=== PATIENT | male | born 1975 | race Caucasian/White ===

== ENCOUNTER 2017-04-10 17:49 | Inpatient (IN) ==
[2017-04-10] MEDS ORDERED: methylPREDNISolone SOD SUC 125 MG/2 ML VIAL IV STA (18:08)
[2017-04-10] MEDS ORDERED: VANCOMYCIN INJ 1,000 MG in SODIUM CHLORIDE 0.9% 250 ML IV STA (18:08)
[2017-04-10] MEDS ORDERED: KETOROLAC 30 MG/1 ML VIAL IV STA (18:08)
[2017-04-10] MEDS ORDERED: methylPREDNISolone SOD SUC 125 MG/2 ML VIAL ONE (18:35)
[2017-04-10] MEDS ORDERED: KETOROLAC 30 MG/1 ML VIAL ONE (18:35)
[2017-04-10] MEDS ORDERED: VANCOMYCIN 1,000 MG VIAL ONE (18:35)
[2017-04-10 18:51] LABS: Basophils # 0.1 10*3/uL (0.0-0.2); Basophils % 0.4 % (0.0-0.8); Eosinophils # 0.6 10*3/uL (0.0-0.87); Hematocrit 45.1 VOL% (42.0-52.0); Hemoglobin 15.1 GM/DL (14.0-18.0); Immature Granulocytes % 1.2 %; Immature Granulocytes Absolute 0.36 #; Lymphocytes % 3.4 % (21.2-54.2); Mean Corpuscular HGB Conc 33.5 GM/DL (32-36); Mean Corpuscular Hemoglobin 29 PG (27-34); Mean Corpuscular Volume 86.6 FL (87-102); Monocytes # 1.4 10*3/uL (0.11-0.8); Monocytes % 4.8 % (1.7-12.7); Neutrophils # 25.8 10*3/uL (1.4-7.4); Neutrophils % 88.2 % (38.7-73.9); Platelet Count 311 T/CUMM (130-400); Red Blood Count 5.21 MC/CUMM (3.8-5.5); Red Cell Distribution Width 12.3 % (9.3-17.3); White Blood Count 29.2 T/CUMM (4-12)
[2017-04-10 19:03] LABS: Lactic Acid 2.9 MMOL/L (0.4-2.0)
[2017-04-10 19:06] LABS: INR 1.1; PT Patient Result 11.3 SECS
[2017-04-10 19:13] LABS: Alanine Aminotransferase 28 U/L (16-61); Albumin 3.2 G/DL (3.4-5.0); Alkaline Phosphatase 129 U/L (45-117); Aspartate Amino Transferase 17 U/L (0-37); Blood Urea Nitrogen 14 MG/DL (7-18); Calcium 9.1 MG/DL (8.5-10.1); Glucose 131 MG/DL (74-106); Osmolality,Calculated 275.8 MOS/KG (273-304); Potassium 3.1 MMOL/L (3.5-5.1); Sodium 137 MMOL/L (136-145); Total Protein 8.5 G/DL (6.4-8.3); Troponin I Only < 0.015 NG/ML (0.00-0.045)
[2017-04-10] MEDS ORDERED: SODIUM CHLORIDE 0.9% 1,000 ML IV STA (19:18)
[2017-04-10] MEDS ORDERED: ONDANSETRON 4 MG/2 ML VIAL IV STA (19:25)
[2017-04-10] MEDS ORDERED: HYDROmorphone 2 MG/1 ML VIAL IV STA (19:25)
[2017-04-10 19:55] LABS: Sedimentation Rate-Westergren 35 MM/HR (0-15)
[2017-04-10] MEDS ORDERED: SODIUM CHLORIDE 0.9% 2,200 ML IV ONE (20:02)
[2017-04-10] MEDS ORDERED: ONDANSETRON 4 MG/2 ML VIAL ONE (20:07)
[2017-04-10] MEDS ORDERED: HYDROmorphone 2 MG/1 ML VIAL ONE (20:08)
[2017-04-10 20:46] LABS: Band Neutrophils 2 % (0-10); Eosinophils 5 % (0-10); Lymphocytes 7 % (20-55); Segmented Neutrophils 80 % (50-85); Total Cells Counted 100
[2017-04-10 20:47] LABS: Platelet Estimate Normal
[2017-04-10] MEDS ORDERED: INFLUENZA VIRUS VACCINE 0.5 ML SYRINGE IM ONE (22:00)
[2017-04-10] MEDS ORDERED: POTASSIUM CHLORIDE 20 MEQ TABLET PO ONE (22:30)
[2017-04-11 01:25] LABS: Apearance,Urine Slightly Hazy (Clear); Bacteria,Urine Occasional /HPF (Few); Bilirubin,Urine Negative (Negative); Blood, Urine Negative (Negative); Glucose,Urine (UA) 50 mg/dL (Negative); Hyaline Casts,Urine 2 /LPF (0-3); Ketones,Urine Negative (Negative); Mucus,Urine Occasional /LPF (Occasional); Nitrite,Urine Negative (Negative); Protein,Urine 30 MG/DL; RBC,Urine 2 /HPF (0-4); Squamous Epithelial Cell,Urine Occasional /HPF (0-10); Urine Color Amber (Yellow); Urine Specific Gravity 1.027 (1.001-1.035); WBC,Urine 4 /HPF (0-6)
[2017-04-11] MEDS: MORPHINE 10 MG/1 ML VIAL IV PRN ×4 (01:50→20:05)
[2017-04-11 02:25] LABS: Barbiturates Screen,Urine Negative (Negative); Benzodiazepines Screen,Urine Negative (Negative); Cannabinoid Screen,Urine Positive (Negative); Opiate Screen,Urine Positive (Negative); Phencyclidine Screen,Urine Negative (Negative)
[2017-04-11 04:14] LABS: Basophils # 0.1 10*3/uL (0.0-0.2); Basophils % 0.3 % (0.0-0.8); Eosinophils % 0.1 % (0.00-10.9); Hematocrit 41.6 VOL% (42.0-52.0); Hemoglobin 13.8 GM/DL (14.0-18.0); Immature Granulocytes Absolute 1.89 #; Lymphocytes # 0.8 10*3/uL (1.4-4.0); Lymphocytes % 2.1 % (21.2-54.2); Mean Corpuscular HGB Conc 33.2 GM/DL (32-36); Mean Corpuscular Hemoglobin 29 PG (27-34); Mean Corpuscular Volume 87.4 FL (87-102); Mean Platelet Volume 11.8 FL (9.6-12.0); Monocytes # 1.2 10*3/uL (0.11-0.8); Monocytes % 3.2 % (1.7-12.7); Neutrophils # 33.8 10*3/uL (1.4-7.4); Neutrophils % 89.3 % (38.7-73.9); Platelet Count 282 T/CUMM (130-400); Red Blood Count 4.76 MC/CUMM (3.8-5.5); Red Cell Distribution Width 12.5 % (9.3-17.3); White Blood Count 37.8 T/CUMM (4-12)
[2017-04-11 04:34] LABS: Osmolality,Calculated 276.4 MOS/KG (273-304); Potassium 3.9 MMOL/L (3.5-5.1)
[2017-04-11] MEDS: VANCOMYCIN INJ 1,000 MG in SODIUM CHLORIDE 0.9% 250 ML IV SCH ×2 (06:04→17:13)
[2017-04-11 07:08] LABS: Band Neutrophils 15 % (0-10); Hypochromasia 1+; Lymphocytes 2 % (20-55); Metamyelocytes 4 %; Segmented Neutrophils 78 % (50-85); Total Cells Counted 100
[2017-04-11 07:09] LABS: Platelet Estimate Normal
[2017-04-11] MEDS ORDERED: KETAMINE 500 MG/10 ML VIAL ONE (15:20)
[2017-04-11] MEDS ORDERED: HYDROmorphone 2 MG/1 ML VIAL ONE (15:21)
[2017-04-11] MEDS ORDERED: PROPOFOL 200 MG/20 ML VIAL IV ONE (15:21)
[2017-04-11] MEDS ORDERED: SEVOFLURANE 1 UNIT/15 MINUTE INH ONE (15:21)
[2017-04-11] MEDS ORDERED: METOCLOPRAMIDE 10 MG/2 ML VIAL ONE (15:21)
[2017-04-11] MEDS ORDERED: MIDAZOLAM 2 MG/2 ML VIAL ONE (15:21)
[2017-04-11] MEDS ORDERED: ONDANSETRON 4 MG/2 ML VIAL ONE (15:22)
[2017-04-11] MEDS: ACETAMINOPHEN 325 MG TABLET PO PRN (22:27)
[2017-04-12 05:24] LABS: Basophils # 0.1 10*3/uL (0.0-0.2); Basophils % 0.6 % (0.0-0.8); Eosinophils # 0.4 10*3/uL (0.0-0.87); Eosinophils % 1.6 % (0.00-10.9); Hematocrit 42.9 VOL% (42.0-52.0); Hemoglobin 14.6 GM/DL (14.0-18.0); Immature Granulocytes % 1.1 %; Immature Granulocytes Absolute 0.24 #; Lymphocytes # 1.6 10*3/uL (1.4-4.0); Lymphocytes % 7.4 % (21.2-54.2); Mean Corpuscular Hemoglobin 29 PG (27-34); Mean Corpuscular Volume 85.3 FL (87-102); Mean Platelet Volume 11.9 FL (9.6-12.0); Monocytes # 0.8 10*3/uL (0.11-0.8); Monocytes % 3.7 % (1.7-12.7); Neutrophils # 18.8 10*3/uL (1.4-7.4); Neutrophils % 85.6 % (38.7-73.9); Platelet Count 327 T/CUMM (130-400); Red Blood Count 5.03 MC/CUMM (3.8-5.5); Red Cell Distribution Width 13.1 % (9.3-17.3); White Blood Count 21.9 T/CUMM (4-12)
[2017-04-12 05:48] LABS: Calcium 8.2 MG/DL (8.5-10.1); Osmolality,Calculated 272.8 MOS/KG (273-304); Potassium 3.6 MMOL/L (3.5-5.1)
[2017-04-12] MEDS: VANCOMYCIN INJ 1,000 MG in SODIUM CHLORIDE 0.9% 250 ML IV SCH (06:18)
[2017-04-12] MEDS: MORPHINE 10 MG/1 ML VIAL IV PRN ×2 (06:28→12:27)
[2017-04-12 06:29] LABS: Band Neutrophils 7 % (0-10); Hypochromasia 1+; Lymphocytes 10 % (20-55); Segmented Neutrophils 75 % (50-85); Total Cells Counted 100
[2017-04-12] MEDS: ACETAMINOPHEN 325 MG TABLET PO PRN (07:35)
[2017-04-12] MEDS ORDERED: VANCOMYCIN INJ 2,000 MG in SODIUM CHLORIDE 0.9% 500 ML IV ONE (11:00)
[2017-04-12] MEDS ORDERED: oxyCODONE/ACETAMINOPHEN 5-325 MG TABLET PO PRN (16:26)
[2017-04-12] MEDS: oxyCODONE/ACETAMINOPHEN 5-325 MG TABLET PO PRN (16:38)
[2017-04-12] MEDS: VANCOMYCIN INJ 1,250 MG in SODIUM CHLORIDE 0.9% 250 ML IV SCH (21:21)
[2017-04-13] MEDS: oxyCODONE/ACETAMINOPHEN 5-325 MG TABLET PO PRN ×4 (00:16→23:53)
[2017-04-13] MEDS: VANCOMYCIN INJ 1,250 MG in SODIUM CHLORIDE 0.9% 250 ML IV SCH ×2 (05:35→11:00)
[2017-04-13 08:38] LABS: Basophils # 0.1 10*3/uL (0.0-0.2); Basophils % 0.5 % (0.0-0.8); Eosinophils # 1.8 10*3/uL (0.0-0.87); Eosinophils % 10.9 % (0.00-10.9); Hematocrit 38.8 VOL% (42.0-52.0); Hemoglobin 13.2 GM/DL (14.0-18.0); Immature Granulocytes % 1.6 %; Immature Granulocytes Absolute 0.26 #; Lymphocytes # 2.8 10*3/uL (1.4-4.0); Lymphocytes % 16.9 % (21.2-54.2); Mean Corpuscular Hemoglobin 29 PG (27-34); Mean Corpuscular Volume 84.9 FL (87-102); Mean Platelet Volume 11.4 FL (9.6-12.0); Monocytes # 1.3 10*3/uL (0.11-0.8); Monocytes % 7.7 % (1.7-12.7); Neutrophils # 10.4 10*3/uL (1.4-7.4); Neutrophils % 62.4 % (38.7-73.9); Platelet Count 345 T/CUMM (130-400); Red Blood Count 4.57 MC/CUMM (3.8-5.5); Red Cell Distribution Width 12.9 % (9.3-17.3); White Blood Count 16.6 T/CUMM (4-12)
[2017-04-13 09:01] LABS: Band Neutrophils 9 % (0-10); Eosinophils 9 % (0-10); Giant Platelets Few; Hypochromasia 1+; Lymphocytes 14 % (20-55); Nucleated Red Blood Cells 1 (0-5); Platelet Estimate Adequate; Segmented Neutrophils 60 % (50-85); Total Cells Counted 100
[2017-04-13 09:05] LABS: Calcium 8.4 MG/DL (8.5-10.1); Osmolality,Calculated 265.2 MOS/KG (273-304); Potassium 3.5 MMOL/L (3.5-5.1)
[2017-04-13] MEDS: amLODIPine 5 MG TABLET PO SCH (09:17)
[2017-04-13] MEDS: cefTRIAXone 1,000 MG in SYRINGE 1 EACH IV SCH (15:40)
[2017-04-14] MEDS: oxyCODONE/ACETAMINOPHEN 5-325 MG TABLET PO PRN ×3 (06:42→19:19)
[2017-04-14] MEDS: amLODIPine 5 MG TABLET PO SCH (08:42)
[2017-04-14] MEDS ORDERED: PENICILLIN G POTASSIUM INJ 3,000,000 UNIT in SODIUM CHLORIDE 0.9% 100 ML IV SCH (12:00)
[2017-04-14] MEDS: cefTRIAXone 1,000 MG in SYRINGE 1 EACH IV SCH (16:50)
[2017-04-15] MEDS: oxyCODONE/ACETAMINOPHEN 5-325 MG TABLET PO PRN ×4 (01:18→21:10)
[2017-04-15 06:12] LABS: Basophils # 0.2 10*3/uL (0.0-0.2); Basophils % 0.9 % (0.0-0.8); Eosinophils # 1.7 10*3/uL (0.0-0.87); Eosinophils % 9.6 % (0.00-10.9); Hematocrit 43.7 VOL% (42.0-52.0); Hemoglobin 14.7 GM/DL (14.0-18.0); Immature Granulocytes % 3.5 %; Immature Granulocytes Absolute 0.62 #; Lymphocytes # 4.2 10*3/uL (1.4-4.0); Lymphocytes % 23.9 % (21.2-54.2); Mean Corpuscular HGB Conc 33.6 GM/DL (32-36); Mean Corpuscular Hemoglobin 29 PG (27-34); Mean Corpuscular Volume 85.5 FL (87-102); Monocytes # 1.3 10*3/uL (0.11-0.8); Monocytes % 7.3 % (1.7-12.7); Neutrophils # 9.7 10*3/uL (1.4-7.4); Neutrophils % 54.8 % (38.7-73.9); Platelet Count 454 T/CUMM (130-400); Red Blood Count 5.11 MC/CUMM (3.8-5.5); Red Cell Distribution Width 12.9 % (9.3-17.3); White Blood Count 17.7 T/CUMM (4-12)
[2017-04-15 06:33] LABS: Band Neutrophils 3 % (0-10); Eosinophils 8 % (0-10); Giant Platelets Few; Hypochromasia Slight; Lymphocytes 30 % (20-55); Nucleated Red Blood Cells 1 (0-5); Platelet Estimate Adequate; Segmented Neutrophils 52 % (50-85); Total Cells Counted 100
[2017-04-15 06:45] LABS: Calcium 9.2 MG/DL (8.5-10.1); Osmolality,Calculated 270.8 MOS/KG (273-304); Potassium 3.8 MMOL/L (3.5-5.1)
[2017-04-15] MEDS: amLODIPine 5 MG TABLET PO SCH (08:43)
[2017-04-15] MEDS: NEOMYCIN/POLYMYXIN/BACITRACIN OINT 0.9 GM PACK TOP SCH (13:36)
[2017-04-15] MEDS: cefTRIAXone 1,000 MG in SYRINGE 1 EACH IV SCH (15:15)
[2017-04-16] MEDS: oxyCODONE/ACETAMINOPHEN 5-325 MG TABLET PO PRN ×3 (03:15→14:59)
[2017-04-16] MEDS: amLODIPine 5 MG TABLET PO SCH (09:14)
[2017-04-16] MEDS: NEOMYCIN/POLYMYXIN/BACITRACIN OINT 0.9 GM PACK TOP SCH (09:19)
[2017-04-16 11:08] VITALS: BP 157/89
[2017-04-16] MEDS: cefTRIAXone 1,000 MG in SYRINGE 1 EACH IV SCH (15:04)
== END 2017-04-16 15:45 | disposition home or self-care (01) | DRG 854 ==
LOC: N.ED 17:49 → N.EDINP 19:55 → SUATTDRO 19:55 → N.3E 20:25
PROVIDERS: ADMIT Internal Medicine; ATTEND Pediatrics